=== PATIENT | male | born 2000 | race Caucasian/White ===

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

== ENCOUNTER 2018-06-26 01:25 | Inpatient (IN) | payer OTHER ==
--- NOTE | 2018-06-26 02:36 | ED ---
Psychiatric Complaint - HPI Summary HPI Summary: This patient in a 17 year old male that was brought in by EMS and Xu POOLE [place]. The patient told Xu POOLE he was planning on jumping. In the ED the patient is not respond much and is staring at the ground. He did report that he not fell well. - History Of Current Complaint Chief Complaint: EDMentalHealth Time Seen by Provider: 06/26/18 02:08 Hx Obtained From: Patient, Other: - Police Timing: Constant Severity Initially: Severe Severity Currently: Severe Character: Depressed Has Suicidal: Reports: Demonstrates Gesture - Allergies/Home Medications Allergies/Adverse Reactions: Allergies Allergy/AdvReac Type Severity Reaction Status Date / Time No Known Allergies Allergy Verified 06/30/17 01:37 Home Medications: Home Medications Lisdexamfetamine Dimesylate [Vyvanse] 30 mg PO DAILY 06/26/18 [History Confirmed 06/26/18] PMH/Surg Hx/FS Hx/Imm Hx Cardiovascular History: Denies: Hx Aneurysm, Hx Angina, Hx Deep Vein Thrombosis, Hx Embolism Respiratory History: Denies: Hx Asthma, Hx Chronic Bronchitis, Hx Chronic Obstructive Pulmonary Disease (COPD), Hx Cystic Fibrosis, Hx Lung Cancer, Hx Pneumonia GI History: Denies: Hx Diverticulosis, Hx Gastroesophageal Reflux Disease Infectious Disease History: No Infectious Disease History: Denies: Traveled Outside the US in Last 30 Days - Family History Known Family History: Negative: Respiratory Disease, Seizure Disorder - Social History Alcohol Use: Weekly Hx Substance Use: No Substance Use Type: Reports: None Hx Tobacco Use: Yes Smoking Status (MU): Unknown if Ever Smoked Review of Systems Negative: Fever Positive: Other - SI All Other Systems Reviewed And Are Negative: Yes Physical Exam - Summary Physical Exam Summary: VITAL SIGNS: Reviewed. GENERAL: Patient is a well-developed and nourished male who is lying comfortable in the stretcher. Patient is not in any acute respiratory distress. HEAD AND FACE: No signs of trauma. No ecchymosis, hematomas or skull depressions. No sinus tenderness. EYES: PERRLA, EOMI x 2, No injected conjunctiva, no nystagmus. EARS: Hearing grossly intact. Ear canals and tympanic membranes are within normal limits. MOUTH: Oropharynx within normal limits. NECK: Supple, trachea is midline, no adenopathy, no JVD, no carotid bruit, no c- spine tenderness, neck with full ROM. CHEST: Symmetric, no tenderness at palpation LUNGS: Clear to auscultation bilaterally. No wheezing or crackles. CVS: Regular rate and rhythm, S1 and S2 present, no murmurs or gallops appreciated. ABDOMEN: Soft, non-tender. No signs of distention. No rebound no guarding, and no masses palpated. Bowel sounds are normal. EXTREMITIES: FROM in all major joints, no edema, no cyanosis or clubbing. NEURO: Alert and oriented x 3. No acute neurological deficits. Speech is normal and follows commands. SKIN: Dry and warm Psych: Depressed mood, not talking much. Triage Information Reviewed: Yes Vital Signs On Initial Exam: Initial Vitals Temp Pulse Resp BP Pulse Ox 98.6 F 78 18 128/76 100 06/26/18 01:40 06/26/18 01:40 06/26/18 01:40 06/26/18 01:40 06/26/18 01:40 Vital Signs Reviewed: Yes Diagnostics - Vital Signs Vital Signs Temp Pulse Resp BP Pulse Ox 06/26/18 01:40 98.6 F 78 18 128/76 100 - Laboratory Result Diagrams: 06/26/18 02:40 06/26/18 02:40 Lab Statement: Any lab studies that have been ordered have been reviewed, and results considered in the medical decision making process. Course/Dx - Course Assessment/Plan: This patient in a 17 year old male that was brought in by EMS and Xu POOLE after [place]. The patient told Xu POOLE he was planning on jumping. In the ED the patient is not respond much and is staring at the ground. He did report that he not fell well. After MHE by Dr. Foster the patient will be admitted for depression - Differential Dx/Clinical Impression Provider Diagnosis: Depression Discharge - Sign-Out/Discharge Documenting (check all that apply): Patient Departure - Discharge Plan Condition: Stable Disposition: [facility]YCHIATRIC FACILITY[place] [place] Referrals: [facility] [Z.BUSINESS, APPLICATION, OTHER] - - Attestation Statements Document Initiated by Scribe: Yes Documenting Scribe: Lawrence Fox Provider For Whom Scribe is Documenting (Include Credential): Mary Kate Arvizu MD Scribe Attestation: ILawrence , scribed for Mary Kate Arvizu MD on 06/26/18 at 0556. Status of Scribe Document: Ready
[2018-06-26 02:47] LABS: ABS Basophils 0 10^3/ul (0-0.2); ABS Eosinophils 0.1 10^3/ul (0-0.6); ABS Monocytes 0.6 10^3/ul (0-0.8); ABS Neutrophils 4.6 10^3/ul (1.5-7.7); ABS Nucleated RBC 0 10^3/ul; Eosinophil % 1.3 %; Hematocrit 42 % (42-52); Hemoglobin 14.3 g/dl (14.0-18.0); Lymphocyte % 26.8 %; Mean Corpuscular HGB Conc 34 g/dl (31-36); Mean Corpuscular Hemoglobin 30 pg (27-31); Mean Corpuscular Volume 88 fL (80-94); Mean Platelet Volume 6.8 fL (7.4-10.4); Nucleated Red Blood Cells % 0.1; Platelet Count 273 10^3/ul (150-450); Red Blood Count 4.82 10^6/ul (4.00-5.40); Red Cell Distribution Width 13 % (10.5-15); White Blood Count 7.4 10^3/ul (3.5-10.8)
[2018-06-26 02:54] LABS: Urine Appearance Clear; Urine Blood 1+ (Negative); Urine Color Colorless; Urine Ketones Negative (Negative); Urine Protein Negative (Negative); Urine Red Blood Cell Trace(0-2/hpf) (Absent); Urine Specific Gravity 1.001 (1.010-1.030); Urine Urobilinogen Negative (Negative); Urine White Blood Cell Absent (Absent)
[2018-06-26 03:02] LABS: EGFR Non-African American 111.6 (>60)
--- NOTE | 2018-06-26 14:04 | HP ---
PSYCHIATRIC HISTORY AND PHYSICAL: DATE OF ADMISSION: 06/26/18 JUSTIFICATION FOR ADMISSION: The patient is in need of 24-hour supervision and care secondary to gladis cidal ideations. CHIEF COMPLAINT: "It all happened kind of fast." HISTORY OF PRESENT ILLNESS: The patient is a 17-year-old single white male who is a sophomore physic al therapy student at [employer] who was actually brought in by the [facility] police after esequiel girard discovered on one of the bridges on [place] property contemplating jumping in a suicide attempt. The patient was brought to the emergency room where he initially could not contract for safety and was admitted on involuntary status due to suicidality. At this time, the patient is denying any furt her suicidal ideation stating that he feels well, much better and ready to go home. The stressor nicholas ding up to this was a breakup with his long- term girlfriend which occurred approximately 2 days prio r to admission. He admits at this point that over the prior weekend, he had been unfaithful to his s ignificant other and had tried to reveal this to her, but she found the extent of his sexual contact with this other person over social media and broke up with him. He states that the infidelity was unc haracteristic of him and inconsistent with his values. He felt tremendously ashamed and guilty and s tates that he walked from campus on all the way to [place] and admitted to me that he had the idea of contemplating suicide on the bridge. There, he was apprehended by campus security and admitted h is thought process to them and was brought for further evaluation. At this time, he is denying depres sed mood, he denies further suicidal or homicidal ideations. Symptomatically, he does admit to poor sleep and guilt, but he denied anhedonia, energy problems, concentration loss, appetite disturbance, or psychomotor retardation. PSYCHIATRIC HISTORY: The patient has no prior history of psychiatric treatment for anything other th an attention deficit hyperactivity disorder for which he is on 2 stimulants including Vyvanse 30 mg d aily and Adderall 10 mg as a p.r.n. for use when studying intensively. 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 He denies any history of abuse or neglect. Denies any history of traumatic experiences. SUBSTANCE ABUSE HISTORY: Somewhat concerning for episodic alcohol use. It is notable that he was in our emergency room with acute alcohol intoxication in June 2017. When asked about this, he insi sts that he does not drink anymore than his college colleagues. He does admit to smokeless tobacco u se, approximately per week. He denies illicit substance abuse. PAST MEDICAL HISTORY: Significant for right shoulder surgery in 2016. ALLERGIES: He is allergic to PENICILLIN. FAMILY HISTORY: Noncontributory. SOCIAL HISTORY: The patient was born and raised in [place] which is an extended suburb of [place]. He is the second of 3 total children from an intact family. He has an older brother and a yo chucho sister. 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 He is doing academically well with a cumulative GPA of 3.5. Th e patient is sexually active mostly with his girlfriend, although he did have recent protected sex wi th another female. He denies any history of STDs. The patient is holiness and was raised in the [facility] [employer]. 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 He does have a le gal history of being arrested for underage drinking when he was a senior in high school. REVIEW OF SYSTEMS: The patient denies headache or double vision. Denies sore throat, cough, chest p ain, difficulty breathing. Denies abdominal pain, nausea, vomiting, diarrhea, constipation. Denies fevers, rashes, changes in weight. PHYSICAL EXAMINATION VITAL SIGNS: Blood pressure 126/60, heart rate 89, respiratory rate 16, temperature 98.6 degrees Fah renheit; oxygen saturation is 100% on room air. HEENT: Head is normocephalic, atraumatic. NECK: Supple. CHEST: Clear to auscultation bilaterally. CARDIAC: Exam reveals normal heart sounds. ABDOMEN: Soft and nontender. MUSCULOSKELETAL: No sign of edema. No cyanosis or clubbing. NEUROLOGICAL: He is grossly intact with no focal deficits. SKIN: Warm and dry. LABORATORY DATA: CBC is within normal limits. CMP also within normal limits. TSH normal at 1.42. Urinalysis within normal limits. Urine drug screen is positive for amphetamines. Serum alcohol lev el was elevated at 122. MENTAL STATUS EXAM: The patient is a young athletic-looking white male who is clean, well groomed, d ressed in blue patient scrubs. He does appear to have mild acne vulgaris. He makes good eye contact . He is fairly easy to establish a rapport with. Speech has a normal rate, tone and volume. Mood a ppears to be euthymic with a full affect. Thought process is linear and goal directed. Thought cont ent is significant for his desire to be discharged from the hospital, so that he can return to his [facility] on [facility] campus. The patient denies suicidal or homicidal ideations currently. He denies auditory or visual hallucinations. Insight and judgment would appear to be fair given his rosalva lingness to follow up with outpatient services. Cognitively, he is awake and alert with what would a ppear to be an average intellect. DIAGNOSES: [place] I: Adjustment disorder with depressed mood. Attention deficit hyperactivity disorde r by history. Rule out alcohol use disorder. [place] II: Deferred. 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 This was all following a breakup with a significant relatio nship. I think his symptoms are most consistent with an adjustment disorder and do not believe that medication would be useful at this time. Clearly, there are concerns in terms of impulsivity, possib le alcohol misuse, and his tendency to be dramatic and contemplate suicide under certain circumstance s. PLAN: The patient is admitted to the adult behavioral health unit where he is placed on q.15-minute checks for his own safety. We will be contacting his parents for further collateral information and also reaching out to [employer]'s administration to see if they can involve a it support manager. Clearly, dorian reese would benefit from some type of psychosocial followup in the community, most likely at the [facility] clinic at . While he is here, he is certainly encouraged to avail himself of all [facility] activities including individual and group psychotherapies. I will be following up with him on a d aily basis. [id number]/[facility] #: [id number]
[2018-06-27] MEDS ORDERED: Al Hydrox/Mg Hydrox/Simet LIQ* 30 ML UDC PO PRN (02:56)
[2018-06-27] MEDS ORDERED: Acetaminophen TAB* 325 MG PO PRN (02:56)
[2018-06-27 07:59] VITALS: BP 124/43
[2018-06-27] MEDS ORDERED: Vitamin THERAPEUTIC TAB PO SCH (09:00)
--- NOTE | 2018-06-27 15:07 | DS ---
DATE OF ADMISSION: 06/26/2018. DATE OF DISCHARGE: 06/27/2018. DISCHARGE DIAGNOSES: AX[place] I: Adjustment disorder with depressed mood; attention deficit hyperactivity disorder by history; rule out alcohol use disorder. AXIS II: Deferred. CONDITION AT THE TIME OF DISCHARGE: Improved. The patient is steadfastly denying any suicidal ideations. He agrees to reduce his use of social alcohol. He is agreeable with follow-up on campus at the [facility] mental health clinic. We have spoken with his mother, Glenda Metz, who indicates that she is supportive of the discharge plan. She understands that Adán will be finishing his exams at and then returning to their home in the suburbs of [place] for the . The patient has been social and interactive on the unit with a bright affect. 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 MENTAL STATUS EXAMINATION: The patient is a young, athletic-looking, white male who is clean, well-groomed, dressed in a blue T-shirt and sweatpants. He appears to have mild acne vulgaris. He makes good eye contact. He is fairly easy to establish a rapport with. Speech has a normal rate, tone, and volume. Mood appears to be euthymic with a full affect. Thought process is linear and goal- directed. Thought content is significant for his desire to be discharged from the hospital, so that he can return to his studies. He denies suicidal or homicidal ideations. He denies auditory or visual hallucinations. Insight and judgment appear to be fair given his willingness to follow-up with outpatient services. Cognitively, he is awake and alert with what would appear to be an average intellect. DISCHARGE INSTRUCTIONS TO THE PATIENT: A. Medications: The patient is to remain on Vyvanse 30 mg p.o. q.a.m. as prescribed by his outpatient doctor in [place]. B. Diet: Regular. C. Activities: As tolerated. The patient is a nonsmoker. There are no laboratory or diagnostic studies pending at the time of discharge. D. Follow-up care: The patient will be seen tomorrow, which is June 28, at the [facility]. E. Substance abuse follow-up: Nonapplicable. HOSPITAL COURSE - PART A: Reason for admission: The patient is a 17-year-old, single white male who is a sophomore physical therapy student at [employer] who was brought in by the [facility] Police after being discovered on one of the [place] property contemplating jumping in a suicide attempt. The patient was brought to the emergency room where he initially could not contract for safety and was admitted on an involuntary status due to suicidality. At this time, the patient is denying any further suicidal ideation , stating that he feels well, much better and ready to go home. The stressor leading up to this was a break-up with his long- term girlfriend which occurred approximately two days prior to admission. He admits at this point that over the prior weekend he had been unfaithful to his significant other and had tried to reveal this to her, but she found the extent of his sexual contact with this other person over social media and broke up with him. He states that the infidelity was uncharacteristic of him and was inconsistent with his values. He felt tremendously ashamed and guilty, and states that he walked from campus on all the way to [place] and admitted to me that he had the idea of contemplating suicide on the bridge. There he was apprehended by [place] security and admitted to them that he was having thoughts of jumping; thereafter , he was brought to the emergency room for an evaluation. At the time of my first meeting, he was denying depressed mood and denied further suicidal or homicidal ideations. Symptomatically, he did admit to poor sleep and guilt following the break-up, but he denied anhedonia, energy problems, concentration loss, appetite disturbance, or psychomotor retardation. HOSPITAL COURSE - PART B: Psychiatric treatment rendered: The patient was admitted to the Adult Behavioral Health Unit where he was placed on q.30 minute checks for his own safety. I did note that his urine drug screen was positive for amphetamines and it turns out that his primary care physician has been prescribing long-term psychostimulants for attention deficit hyperactivity disorder. The patient's blood alcohol content was 122 which indicates that he was intoxicated during this impulsive suicidal gesture. I also note that in the record he had a previous trip to our emergency room in June of 2017 with acute alcohol intoxication at that time. Adán also revealed to us that he had underage drinking charges as a high school student in [place]. The patient did not feel that alcohol was necessarily something that he was addicted to, but he admitted that he often hangs out in peer groups that tend to consume alcohol in social situations. He is agreeing to abstain for the time being. I was able to contact his mother, Glenda Metz, for collateral information. She seemed to agree that this was an impulsive event and not something that he has ever done before to her knowledge. She is supportive of the discharge plan, understanding that the patient will follow-up with [facility] and then return home for the . At this time, the patient continues to deny any thoughts of harming himself. He is very much future oriented, stating that he is getting excellent grades in his PT program and would like to get back to his classes. At this time, we see no barrier to him seeking and receiving adequate care in the community setting. [id number]/[facility] #: [id number] REECE
== END 2018-06-27 12:55 | disposition home or self-care (01) | DRG 881 ==
LOC: ED 01:25 → BSU 07:29
PROVIDERS: ADMIT Psychiatry & Neurology Psychiatry; ATTEND Psychiatry & Neurology Psychiatry
DX: F43.21 Adjustment disorder with depressed mood (principal); R45.851 Suicidal ideations; F90.9 Attention-deficit hyperactivity disorder, unspecified type; L70.0 Acne vulgaris; Z72.89 Other problems related to lifestyle; Z87.820 Personal history of traumatic brain injury; Z72.0 Tobacco use; Z88.0 Allergy status to penicillin
CPT/HCPCS: 36415; 80053; 80307; 80320; 80329; 81003; 81015; 84443; 85025; 99222; 99238; 99283; 90686; A9270-GY; G0480